=== PATIENT | male | born 1970 | race Two or more races ===

== ENCOUNTER 2023-08-14 07:58 | Day surgery (SDC) | payer OTHER ==
[2023-08-11 16:19] VITALS: BMI 24.4
[2023-08-14 10:02] VITALS: TEMP 98
[2023-08-14 10:09] VITALS: BP 97/60; PULSE 62; RESP 19
== END 2023-08-14 10:19 | disposition home or self-care (01) ==
LOC: FASU-ENDO 07:58
PROVIDERS: ATTEND Internal Medicine Gastroenterology
PROC: 0DJD8ZZ Inspection of Lower Intestinal Tract, Via Natural or Artificial Opening Endoscopic (ICD-10-PCS; principal; 2023-08-14 09:33)
DX: Z12.11 Encounter for screening for malignant neoplasm of colon (principal); K57.30 Diverticulosis of large intestine without perforation or abscess without bleeding